=== PATIENT | female | born 1980 ===

== ENCOUNTER 2017-02-25 10:15 | Inpatient (IN) | payer MEDICARE, MEDICAID ==
[~2017-02-25] VITALS: Ht 171.4 cm; Wt 123.4 kg
[2017-02-25] MEDS: Hemorrhage Kit, Post Partum XX ONE ×2 (02:30→14:52)
[2017-02-25] MEDS: Misoprostol 25 mCg/0.25 Tablet VAGINAL SCH ×4 (05:30→20:30)
[2017-02-25] MEDS ORDERED: Carboprost 250 mCg/mL Inj IM PRN (14:10)
[2017-02-25] MEDS ORDERED: fentaNYL-PF 50 mCg/mL 2 mL Inj IVPUSH PRN (14:10)
[2017-02-25] MEDS ORDERED: Methylergonovine 0.2 mg/mL Inj IM PRN (14:10)
[2017-02-25] MEDS ORDERED: Oxytocin 10 Unit/mL Inj IM PRN (14:10)
[2017-02-25] MEDS ORDERED: Oxytocin 30 Units/500 mL LR 30 UNITS in IV Premix 1 EACH IV PRN (14:10)
[2017-02-25 15:03] LABS: Mean Corpuscular Hemoglobin 28.8 pg (27.0-35.0); Mean Corpuscular Volume 87.1 fL (81-100)
[2017-02-26] MEDS: Misoprostol 25 mCg/0.25 Tablet VAGINAL SCH ×8 (00:40→23:30)
[2017-02-26] MEDS ORDERED: Ondansetron 2 mg/mL 2 mL Inj ONE (00:51)
[2017-02-26 06:35] LABS: Mean Corpuscular Hemoglobin 29.3 pg (27.0-35.0); Mean Corpuscular Volume 87.1 fL (81-100)
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
[2017-02-26] MEDS: Ondansetron 2 mg/mL 2 mL Inj IVPUSH PRN ×3 (08:05→19:48)
[2017-02-26] MEDS: Sodium Chloride LOK Flush 10 mL Syringe IVFLUSH PRN ×2 (08:07→14:58)
[2017-02-26] MEDS: Lactated Ringer's 1,000 ML IV PRN ×2 (17:41→20:14)
[2017-02-27] MEDS: Ondansetron 2 mg/mL 2 mL Inj IVPUSH PRN ×3 (00:11→09:39)
[2017-02-27] MEDS: Lactated Ringer's 1,000 ML IV PRN (00:28)
[2017-02-27] MEDS: Misoprostol 25 mCg/0.25 Tablet VAGINAL SCH ×4 (02:30→11:30)
[2017-02-27 05:40] LABS: Mean Corpuscular Hemoglobin 28.8 pg (27.0-35.0); Mean Corpuscular Volume 86.8 fL (81-100); Platelet Count 191 bil/L (150-400)
[2017-02-27] MEDS ORDERED: MetoCLOpramide 5 mg/mL 2 mL Inj IVPUSH ONE (07:35)
[2017-02-27] MEDS: Lactated Ringer's 1,000 ML IV SCH ×2 (09:33→14:01)
[2017-02-27] MEDS ORDERED: MetoCLOpramide 5 mg/mL 2 mL Inj IVPUSH PRN (09:35)
[2017-02-27] MEDS ORDERED: Oxytocin 30 Units/500 mL LR 30 UNITS in IV Premix 1 EACH IV PRN ×2 (09:35→17:05)
[2017-02-27] MEDS ORDERED: fentaNYL 2 mCg/mL-Bupivicaine 0.125% 100 mL Premix EPIDURAL ONE (11:53)
[2017-02-27] MEDS ORDERED: Lactated Ringer's 500 ML IV ONE (12:38)
--- NOTE | 2017-02-27 12:38 | PCM.HPANE ---
Patient Data Date of Service: Feb 27, 2017 (Exam completed 11:00) Surgeon Admitting Provider:Allan Seals MD Attending Provider:Allan Seals MD Primary Care Physician:Allan Seals MD Other Provider:Amando Gtz Anesthesia Reason for Visit Nst For Gestational Diabetes NST FOR GESTATIONAL DIABETES Ht/WT & BMI Body Mass Index Allergies Coded Allergies: No Known Allergies (Unverified , 02/25/17) Diabetes History Hx Diabetes?: Yes Medications Hypertension Medication: Yes History History of ENT Problems?: No Cardiovascular History: Positive for:: Edema Hypertension Irregular Heartbeat Other History/Comments History of MVP and PVCs. Hx Neurologic Problems?: No Hx of GI Problems?: No Female Hx: Positive for:: Currently Smoking Status: Former Smoker Stop/Bang Treated for Sleep Apnea?: No Do You Have a CPAP Machine?: No P-Blood Pressure: treated: Yes B- Body Mass Index > 35 kg/m2: Yes A- Age over 50: No N- Neck Large Circumference: Yes G- Gender Male: No DEWAYNE Risk Assessment: High Risk, =/>3 Yes Risk Assessment Category Category 1A: Patient has history of documented sleep apnea, and HAS NOT received any narcotic, sedative or anesthesia administration during this stay. Category 1B: Patient has history of documented sleep apnea, and HAS received any narcotic , sedative or anesthesia administration during this stay Category 2: Patient has SUSPECTED Obstructive Sleep Apnea, and HAS received any narcotic , sedative or anesthesia administration during this stay. Category 3: Patient has SUSPECTED Obstructive Sleep Apnea and HAS NOT received narcotic, sedative or anesthesia administration during this stay. Category 4: Outpatient in Procedural Areas with known sleep apnea or who screen positive for High Risk via the STOP/BANG questionnaire. Exam Exam General Appearance: Alert, Oriented X3, Cooperative, No Acute Distress HEENT/AIRWAY: MP 3 Lungs: Clear to Auscultation, Normal Air Movement Heart: Exam Unremarkable, Regular Rate/Rhythm, No Murmurs/Rubs/Gallops Meds/Labs/Diagnostics Admission Meds Current Medications Labetalol HCl (Normodyne) 100 mg ONCE ONCE PO Last administered on 02/26/17t 16 :45; Start 02/26/17 at 16:45; Stop 02/26/17 at 16:46; Status DC Zolpidem Tartrate (Ambien) 5 mg ONCE ONCE PO Last administered on 02/27/17 01: 30; Start 02/27/17 at 01:00; Stop 02/27/17 at 01:01; Status DC Zolpidem Tartrate (Ambien) 10 mg ONCE ONCE PO Last administered on 02/27/17 01 :30; Start 02/27/17 at 01:30; Stop 02/27/17 at 01:31; Status DC Metoclopramide HCl (Reglan Inj) 10 mg PRN ONCE IVPUSH Last administered on 02/27 07:49; Start 02/27/17 at 07:35; Stop 02/27/17 at 07:36; Status DC Labs Test 02/25/17 14:30 02/26/17 05:00 02/26/17 05:40 02/27/17 05:30 Hemoglobin A1c 5.5% (4.8-5.6) Urine Random Creatinine 172mg/dL (16-392) Urine Random Total Protein 432mg/dL (0-15) Urine Protein/Creatinine Ratio 2.59 Hematology Comments White Blood Count 15.0th/mm3 (3.8-10.1) Red Blood Count 4.10mil/mm3 (3.90-5.20) Hemoglobin 11.8g/dL (12.0-15.6) Hematocrit 35.6% (35.0-46.0) Mean Corpuscular Volume 86.8fL (81-100) Mean Corpuscular Hemoglobin 28.8pg (27.0-35.0) Mean Corpuscular Hemoglobin Concent 33.1% (32.0-37.0) Red Cell Distribution Width 13.3% (12.3-15.4) Platelet Count 191bil/L (150-400) Blood Urea Nitrogen 14mg/dL (6-20) Creatinine 0.81mg/dL (0.57-1.00) Uric Acid 10.5mg/dL (2.6-7.2) Aspartate Amino Transf (AST/SGOT) 26U/L (0-50) Alanine Aminotransferase (ALT/SGPT) 16U/L (0-32) Test 02/27/17 05:40 Hold Urine Received (Received) Plan Impression Patient chart reviewed, patient interviewed and anesthestic plan with risks, benefits, and alternatives discussed, and informed consent obtained. ASA Physical Status: ASA2 Mod Systemic Disease Anesthetic Plan: Epidural Bene/Risks/Altern/Consents: Yes HP Complete Prior to Induction: Yes Ugo Beavers MD Feb 27, 2017 12:38
[2017-02-27] MEDS ORDERED: Atropine 1 mg/10 mL (Code) Syringe IVPUSH PRN (12:40)
[2017-02-27] MEDS ORDERED: fentaNYL 2 mCg/mL-Bupiv 0.125% 100 ML EPIDURAL SCH (12:40)
[2017-02-27] MEDS ORDERED: EPHEDrine Sulfate 50 mg/mL Inj IVPUSH PRN (12:40)
[2017-02-27] MEDS ORDERED: Ondansetron 2 mg/mL 2 mL Inj IVPUSH PRN (12:40)
[2017-02-27] MEDS ORDERED: Measles-Mumps-Rubella Vaccine 0.5 mL Inj SUBQ ONE (17:05)
[2017-02-27] MEDS ORDERED: Witch Hazel-Glycerin Pads TOPICAL PRN (17:05)
[2017-02-27] MEDS ORDERED: Oxytocin 10 Unit/mL Inj IM PRN (17:05)
[2017-02-27] MEDS ORDERED: TdaP Vaccine 0.5 mL Inj IM ONE (17:05)
[2017-02-27] MEDS ORDERED: Hemorrhage Kit, Post Partum XX ONE (17:05)
[2017-02-27] MEDS ORDERED: LANOlin HPA 7 Gm Ointment TOPICAL PRN (17:05)
[2017-02-27] MEDS ORDERED: Benzocaine (Dermoplast) 20% 60 Gm Spray TOPICAL PRN (17:05)
[2017-02-27] MEDS ORDERED: Influenza (Adult) Vaccine 0.5 mL Syringe IM ONE (17:05)
[2017-02-27] MEDS ORDERED: Carboprost 250 mCg/mL Inj IM PRN (17:05)
[2017-02-27] MEDS ORDERED: Methylergonovine 0.2 mg/mL Inj IM PRN (17:05)
[2017-02-27] MEDS ORDERED: HYDROcodone-APAP 5-325 mg Tablet PO PRN (17:05)
[2017-02-28 06:21] LABS: Mean Corpuscular Volume 87.5 fL (81-100)
[2017-02-28] MEDS: Lactated Ringer's 1,000 ML IV SCH ×3 (07:34→07:35)
[2017-02-28] MEDS: Misoprostol 25 mCg/0.25 Tablet VAGINAL SCH (07:34)
[2017-02-28] MEDS ORDERED: Measles-Mumps-Rubella Vaccine 0.5 mL Inj SUBQ ONE (08:30)
[2017-03-01] MEDS: Misoprostol 25 mCg/0.25 Tablet VAGINAL SCH ×6 (05:30→20:30)
--- NOTE | 2017-03-01 07:16 | PROG NOTE ---
[address] [address] PROGRESS NOTE PATIENT: RADHA FLETCHER : 1980 MR#: [id number] ADMIT: 02/25/2017 JOB ID: [id number] [facility] NOTE: DATE: 02/26/2017 SUBJECTIVE: The patient was admitted to [facility] on February 25, 2017 with severe preeclampsia on the basis of proteinuria and with associated significant blood pressure elevation at 36 weeks along in her first . Cytotec was provided February 25, 2017 and in to February 26, 2017, followed by Cervidil. Some cramping/mild contractions have occurred although no significant uterine activity. heart tracing has been okay and blood pressure has been elevated, more significantly at times, yet without need for routine antihypertensive medication. Single dose of oral labetalol was provided. Otherwise, heart tracing has been good, labs have been stable, and we had the opportunity to continue with cervical ripening/labor induction in the interest of delivery although without the need to proceed to section at this point. I have had a thorough discussion with the patient and in this regard. They realize that delivery is indicated to help in the preeclampsia process for maternal and consideration. However, they realize that progress is slow and to be expected to be slow. We have discussed the factors that we are observing including condition as well as maternal factors, (labs, blood pressure, urine output) to help guide our next step. We have also discussed magnesium sulfate therapy, potentially to use once labor becomes more active although not at this point in time. All questions have been answered. No guarantees stated or implied. PLAN: Continue cervical ripening/labor induction efforts.
[2017-03-01] MEDS: Sodium Chloride LOK Flush 10 mL Syringe IVFLUSH SCH ×2 (08:30→16:30)
[2017-03-01] MEDS: Lactated Ringer's 1,000 ML IV SCH ×4 (09:05→19:05)
--- NOTE | 2017-03-01 10:23 | PROG NOTE ---
[address] [address] PROGRESS NOTE PATIENT: RADHA FLETCHER : 1980 MR#: [id number] ADMIT: 02/25/2017 JOB ID: [id number] DATE: 02/28/2017 at 1700 hours. SUBJECTIVE: The patient is now on day number one following a vaginal delivery at 36+ weeks along in setting of severe preeclampsia with noted "significant" proteinuria and hypertension and some growth restriction plus gestational diabetes. Note that blood sugars have been fine and blood pressures have frequently been mildly elevated and occasionally higher, ultimately leading to labetalol administration 100 mg twice daily, for continued tracking. Magnesium sulfate therapy was not initiated. Urine output has been fine. There has been no reported headache, blurry vision, right upper quadrant or epigastric pain or reflex concerns of note. Platelet count has been acceptable. Baby has remained in the nursery and mom has been able to hold the baby which condition has been improving in the setting of prematurity. PLAN: 1. Continue care in the hospital. 2. Continue the track closely blood pressures and to continue labetalol 100 mg p.o. b.i.d. We will see if anything additional is needed over time. 3. Continue to track blood sugars on diabetic diet.
--- NOTE | 2017-03-01 10:23 | PROG NOTE ---
[address] [address] PROGRESS NOTE PATIENT: RADHA FLETCHER : 1980 MR#: [id number] ADMIT: 02/25/2017 JOB ID: [id number] DATE: at 1730 hour. SUBJECTIVE: The patient continued with cervical ripening overnight into February 27, 2017, in the setting of 36+ week with severe preeclampsia and also with known gestational diabetes. Note that her blood sugars have been fine. She has continued to have intermittent nausea and vomiting as she has had before labor induction and she had received intravenous Zofran and then intravenous Reglan as well. Urine output has been adequate although perhaps a little bit less on February 27, 2017. We have preferred to not fluid overload although with nausea and vomiting, she is likely somewhat dry and we have provided some intravenous fluids today. Blood pressure has been elevated at times, although with no consistent worrisome changes. heart tracing has been good. In the morning of February 27, 2017, cervix was noted early to be at 1.5 cm dilatation, and then later 2.5 to 3 cm dilatation and with greater than 50% effacement. Artificial rupture of membranes was accomplished and clear fluid recovered and intrauterine pressure catheter was placed as well scalp electrode in that heart tracing had been difficult to obtain throughout hospitalization due to morbid obesity. Uterine contraction pattern was then demonstrated to be somewhat safe although with some good contractions and intensity. Pitocin augmentation was initiated and uterine contractions became gradually closer. Cervix then more readily dilated and she reached complete cervical dilatation. Note from the nursing staff reported heart rate deceleration including variables and late decelerations at times, although with reportedly consistent good variability and appropriate heart rate response to scalp stimulation. The active phase of labor was rather rapid. Magnesium sulfate therapy was not initiated in light of the rather rapid active phase of labor, as blood pressures were remaining generally acceptable with the benefit of epidural as well, and with the preeclampsia and central nervous system appearing to remain relatively stable overall. There was no reported headache or blurry vision, or reflex changes, etc. Once completely dilated, patient was encouraged to push and I came to the hospital. However, on second push while I was on the phone and went into the hospital, patient actually delivered explosively. I came into the room and a small baby (less than 5 pounds, suspect some growth restriction related to preeclampsia that probably was present for some time) was noted, and baby was pink and with good tone but was receiving some oxygen and positive pressure ventilation as support to bring oxygen levels up. The safety analyst also arrived and increased the oxygen delivery and oxygen levels promptly went up and baby continued to show reasonable tone, color and response. Note that cord blood was obtained for routine studies and placenta with membranes then ultimately were expelled, intact. Placenta was sent to pathology due 36 week delivery with preeclampsia and gestational diabetes. Note also the SGA/IUGR is suspect related to more ongoing preeclampsia for some time, although not manifesting clinically until significantly later. Betadine solution was used to cleanse the vulvovaginal region and there were noted several lacerations, including left lateral sulcus/vaginal laceration, midline second degree perineal laceration and periurethral lacerations. These were all repaired in typical fashion with chromic suture with running stitches, additional deep stitch layer in the perineal region and without any obvious hematoma formation anywhere, with hemostasis noted to be complete. Bleeding was minimal. Instrument, needle and sponge counts were all found to be correct. It certainly is anticipated that mother and baby will do well. Baby is early and also with known gestational diabetes that could delay lung maturity, although on the other hand with SGA/IUGR probably from preeclampsia that had been present for a time, that could potentially improve readiness for delivery. Laundrette Owner will be closely following baby who will spend some time in the nursery. From a maternal standpoint, we will continue to track urine output which should further improve, although responding some to extra fluid, and we will also follow blood pressure and administer medication if needed. We can tolerate some mild blood pressure elevations, although we would like to avoid blood pressure extremes. We did not feel that it was mandatory to implement magnesium sulfate therapy, and have not also, as urine output was starting to diminish on the day of delivery, but we will implement this or antihypertensive medications if needed. We will also continue to track any other clinical signs and symptoms of preeclampsia and lab work, blood sugars, etc. We will continue on diabetic diet. [facility]
[2017-03-01] MEDS ORDERED: buPROPion SR 150 mg ER12 Tablet PO ONE (19:00)
[2017-03-02] MEDS: Sodium Chloride LOK Flush 10 mL Syringe IVFLUSH SCH (00:30)
[2017-03-02] MEDS: Lactated Ringer's 1,000 ML IV SCH (09:19)
[2017-03-02] MEDS ORDERED: Sodium Biphos-Phos 133 mL Enema RECTAL ONE (12:45)
--- NOTE | 2017-03-02 15:58 | PCM.CHPMED ---
Subjective Date of Service: Mar 02, 2017 Primary Physician: Admitting Physician: Allan Seals MD Primary Care Physician: Allan Seals MD Attending Physician: Allan Seals MD [facility] Allergies: Coded Allergies: No Known Allergies (Unverified , 02/25/17) Social History Smoking Status: Former Smoker Exam Lab and Diagnostics Result Diagram: 02/28/17 0555 02/27/17 0530 Emilia Sal DO Mar 02, 2017 15:58
[2017-03-02] MEDS ORDERED: NIFEdipine 30 mg ER24 Tablet PO SCH (16:00)
--- NOTE | 2017-03-02 16:16 | PCM.CHPMED ---
Subjective Date of Service: Mar 02, 2017 Provider requesting consult: Allan Seals MD Primary Physician: Admitting Physician: Allan Seals MD Primary Care Physician: Allan Seals MD Attending Physician: Allan Seals MD Chief Complaint: Chief Complaint: Uncontrolled hypertension History of Present Illness: The patient is a 37-year-old, AB3, status post induced vaginal delivery at 36 weeks gestational age. as complicated by gestational diabetes requiring diet changes and glyburide, 2.5 mg daily before bedtime and progressive preeclampsia manifesting as hypertension and proteinuria. She had a vaginal delivery on 02/27/2017 delivered a viable 5 pound infant. Patient has a history of morbid obesity, hypothyroidism,gout, celiac disease, mitral valve prolapse. Patient's hypertension has been treated with labetalol, 100 mg by mouth twice a day, which has been later changed to 200 mg twice a day. However, blood pressure remained to be consistently elevated ranging between 165/98 and 176/100. Her labs were significant for proteinuria +4 and uric acid of 9.7, otherwise, platelets, liver enzymes and creatinine were normal. Today is day 3. Patient states she feels tired and constipated but otherwise well. She denies headache, vision changes, chest pain, heart palpitations, nausea, vomiting, abdominal pain. She is ambulating independently. She is voiding without difficulties. She is passing flatus. She has light lochia.She denies depression. Review of Systems: A comprehensive review of system has been conducted with the patient and is negative except what has been mentioned in the History of present Illness. PMH Allergies: Coded Allergies: No Known Allergies (Unverified , 02/25/17) Social History Smoking Status: Former Smoker Exam Vital Signs Blood pressure: right upper extremity 214/215, left lower extremity 216/211, right lower extremity 181/116, pulse low 60's, otherwise stable. General: Alert, Oriented X3, Cooperative, No Acute Distress Head: Normal Eyes: PERRLA, EOMI, Scleral Anicteric Mouth: Mucous Membr Moist/[place] Neck: Supple Chest & Lungs: Clear to auscultation & percussion Cardiovascular: Exam Unremarkable, Regular Rate/Rhythm Pulses: Dorsalis Pedis Abdomen: Non-tender, Non-distended, Normoactive bowel tones Musculoskeletal: Unremarkable Extremities: No cyanosis/clubbing/edma bilat Neurological: Grossly Neurologically Intact Lab and Diagnostics Result Diagram: 02/28/17 0555 02/27/17 0530 Assessment & Plan Assessment Brooklynn Anderson is a 37-year-old, AB3, status post induced vaginal delivery at 36 weeks gestational age with persistent hypertension. Hospital day 3. 1. Persistent hypertension, present on admission. Active -Goal of systolic blood pressure less than 140 mmHg and diastolic blood pressure less than 90 mmHg at time of discharge, per consensus guidelines -Start nifedipine, 30 mg ER by mouth daily -Continue labetalol, but decrease to 100 mg by mouth twice a day -Hydralazine, 10 mg intravenously as needed if systolic blood pressure above 180 -CBC and CMP stat -Continue to closely monitor 2. Constipation, present on admission. Active -Add miralax, 17mg powder, by mouth daily to patient's bowel regime -Encourage hydration with clear liquids and physical activity 3. Depression, present on admission. Stable -Continue sertaline, 50 mg by mouth daily Disposition: Home, pending clinical course. Blood pressure goal 140-150/90 for 24 hours prior to discharge. Pain Evaluation: Adequate Pain Control GI Prophylaxis: H2 harris VTE Prophylaxis: SCDs Resuscitation Status: CPR: Attempt Resuscitation . Problems: Pain Evaluation: Adequate Pain Control Attending Statement The patient was seen and examined together with Dr. Sal on 03/02/2017 and I agree with the history, exam and plan as outlined in the note above. . Emilia Sal DO Mar 02, 2017 16:16 Brent Valles MD Mar 02, 2017 18:50
[2017-03-02] MEDS ORDERED: hydrALAZINE 20 mg/mL Inj IV PRN (16:30)
[2017-03-02 16:48] LABS: Mean Corpuscular Hemoglobin 29.5 pg (27.0-35.0); Mean Corpuscular Volume 88.3 fL (81-100)
[2017-03-02] MEDS: Polyethylene Glycol (PEG) 17 Gm Powder PO PRN (20:46)
--- NOTE | 2017-03-03 07:39 | PCM.PNMED ---
Subjective Date of Service Mar 03, 2017 Subjective Brooklynn Clement is a pleasant 37-year-old day 4 lady with recent history of severe preeclampsia that resulted in delivery at 36 weeks. The Hospitalist Service was consulted for assistance with persistent hypertension. Patient was found resting comfortably in bed with her significant other at bedside. She denied any headache, lightheadedness, dizziness, sore throat, cough, chest pain, shortness of breath, nausea, vomiting, abdominal pain. She noted no ill effects from the addition of nifedipine yesterday afternoon at 1600. Additionally, patient had no further ill effects from use of labetalol, once the dose was reduced from 200 mg twice daily to 100 mg twice daily. No Nursing report of any adverse events overnight. . Exam Vital Signs Vital signs were reviewed in [facility]. . Exam General: No acute distress, well-developed, well-nourished, appropriately interactive, morbidly obese by BMI alone HEENT: Normocephalic, atraumatic. External ears without defect. Neck: Supple with full range of motion. No jugular venous distension. Cardiovascular: Regular rate and rhythm with no murmurs, rubs, or gallops appreciated Pulmonary: Clear to auscultation bilaterally with no crackles, wheezes, or rhonchi. Normal respiratory effort with no use of accessory muscles. Abdomen: Bowel tones present. Soft, nontender, nondistended. No hepatosplenomegaly or masses appreciated. Extremities: No edema Skin: Normal temperature, turgor, and texture; no rash appreciated. Neurological: Cranial nerves grossly intact. Normal muscle strength, tone, and bulk. No known gait impairment. Psychiatric: Normal mood and affect. Alert and oriented to person, place, and time. . Lab and Diagnostics Result Diagram: 03/02/17 1635 03/02/17 1635 Assessment & Plan Brooklynn Anderson is a 37 year-old, AB3, status post induced vaginal delivery at 36 weeks gestational age with persistent hypertension. Hospital day 4. 1. Persistent hypertension. Improving. -Goal of systolic blood pressure less than 140 mmHg and diastolic blood pressure less than 90 mmHg at time of discharge, per consensus guidelines -Continue labetalol, 100 mg by mouth, twice daily -Increased nifedipine from 30 mg to 60 mg by mouth, daily -Hydralazine, 10 mg intravenously as needed if systolic blood pressure above 180 ; not used overnight -Patient has a history of gout and is currently hyperuricemic; thiazide diuretics should be used cautiously, if at all, if ongoing antihypertensive control is needed in the future -Continue to closely monitor 2. Constipation, present on admission. Active. -Patient had 1 small bowel movement yesterday evening -Continue Miralax, 17mg powder by mouth, daily -Encourage hydration with clear liquids and physical activity 3. Depression, present on admission. Stable. -Continue sertaline, 50 mg by mouth daily 4. Metabolic syndrome, present on admission. Active. -Patient reported successfully employing a ketogenic diet to facilitate 60 pounds weight loss prior to -Patient plans on returning to previous diet to lose weight -Patient was advised to follow with a primary care physician prior to reinitiation of diet in order to monitor blood pressure closely (I recommended Dr. Silviano Villatoro at [facility], who is very familiar with low carbohydrate dietary interventions) Disposition: Home, pending clinical course. Blood pressure goal 140-150/90 for 24 hours prior to discharge. Thank you for allowing the Hospitalist Service to participate in this case with this most interesting patient. We will sign off now, but are available as needed. . Pain Evaluation: Adequate Pain Control GI Prophylaxis: H2 harris Resuscitation Status: CPR: Attempt Resuscitation Brent Valles MD Mar 03, 2017 07:39
[2017-03-03] MEDS: NIFEdipine 30 mg ER24 Tablet PO SCH (09:46)
[2017-03-03] MEDS: Polyethylene Glycol (PEG) 17 Gm Powder PO PRN (14:46)
--- NOTE | 2017-03-03 16:51 | PROG NOTE ---
[address] [address] PROGRESS NOTE PATIENT: RADHA FLETCHER : 1980 MR#: [id number] ADMIT: 02/25/2017 JOB ID: [id number] DATE: 03/03/2017 [facility] NOTE: The patient underwent vaginal delivery after two-day labor induction at 36+ weeks of gestation in the setting of severe preeclampsia on the basis of significant hypertension plus proteinuria. Patient also had gestational diabetes, managed with diet plus glyburide. During the timeframe, patient has improved in all ways. She is voiding, ambulating, has reasonable bleeding, has reasonable pain management with ibuprofen only. She is breast feeding, handling baby well. Has had no leg pain or shortness of breath, etc. Main issue has been that of hypertension that has been significant following delivery, both labile as well as elevated. She was initially started on labetalol and ultimately internal medicine hospitalist was invited in for consultation and management and labetalol was continued at reduced dose and nifedipine extended release product added in. The patient is now using labetalol 100 mg p.o. b.i.d. and nifedipine extend release product has been increased to 60 mg daily. Patient had significant blood pressure elevations during the day yesterday, then coming down with nifedipine for example to 134-156 over 84-88, and now with further nifedipine ER dose increase per hospitalist. Anticipate that patient will do well on this combination of medication at these doses and will probably be able to be discharged to home on March 04, 2017. Internal medicine hospitalist and I agree, however, that we would like to see stable blood pressures over the next 24 hours or so, from March 03, 2017, in to March 04, 2017, prior to official discharge due to prior elevations and lability. Note that although ALT is at 48 (up from 40) with normal 32, and AST is 59, up from 50, these are considered only very mild elevations and not felt to be specifically related to preeclampsia as other lab parameters have not shown any worrisome findings or trends. IMPRESSION: 1. by four days, doing okay. 2. Persistent hypertension, improving, now on dual medications, i.e. nifedipine ER plus labetalol, with prior notation of severe preeclampsia leading to delivery at 36+ weeks of gestation. 3. Prior gestational diabetes, managed with diet plus glyburide, now only on diet and with normal sugars during the timeframe. 4. Morbid obesity. 5. Hypothyroidism, using replacement therapy. 6. Hyperuricemia, note past gout and allopurinol use. 7. Anxiety and depression history, now using Zoloft initiated a couple days ago. 8. Very mild elevation of liver enzymes. Do not suspect any concerning condition. 9. Constipation, improved with ongoing Colace and MiraLAX use now. Status post Dulcolax pill, dulcolax suppository, and Fleet enema. 10. Nursing mother. 11. , condition improving, perhaps soon to leave the nursery out to patient's room. 12. Reported marijuana use for nausea management, admitted to nurse during this hospitalization. 13. See record and current hospital records for additional diagnoses and information. PLANS: Continue postoperative/ management. Will continue to track blood pressures, likely sufficiently stable for patient discharge tomorrow. Anticipating that the baby will be brought out soon to patient's room. Will also check preeclampsia lab work and liver enzymes tomorrow morning, will continue MiraLAX, will continue to track sugars and diabetic diet, will continue sertraline recently initiated, and so forth.
[2017-03-03] MEDS ORDERED: Sodium Chloride NAS 45 mL Spray NASAL PRN (20:20)
[2017-03-04 06:03] LABS: Mean Corpuscular Hemoglobin 29.4 pg (27.0-35.0)
[2017-03-04] MEDS: NIFEdipine 30 mg ER24 Tablet PO SCH (07:27)
--- NOTE | 2017-03-04 08:11 | PROG NOTE ---
[address] [address] PROGRESS NOTE PATIENT: RADHA FLETCHER : 1980 MR#: [id number] ADMIT: 02/25/2017 JOB ID: [id number] [facility] NOTE: DATE: 03/01/2017 TIME: 1800 hours This patient underwent vaginal delivery after lengthy induction at 36+ weeks along in her , complicated by severe preeclampsia manifested as hypertension and proteinuria, also with gestational diabetes, controlled with diet plus glyburide. On the 2nd day, the patient has continued to ambulate well, has voided, her pain has been manageable with ibuprofen, she has not had calf pain, or shortness of breath. The patient has continued to have some blood pressure elevation, mildly elevated frequently in the 130s-150s/80s primarily, although occasionally was systolic in the upper 150s and diastolics in the 95-100+ range. Significant lability has been noted since admission even during the induction process as well as after delivery, suspect related to the preeclampsia condition. I have started her on labetalol 100 mg p.o. b.i.d. and then this evening, on March 01, 2017, to increase to 200 mg p.o. b.i.d. in the interest of trying to reduce the peak systolic and diastolic level. Overall, she has appeared stable from a and from preeclamptic and gestational diabetic side of things, but would like to see less labile blood pressures before discharge to home. The patient is concerned that she will be depressed and she also continues to carry a lot of anxiety. She believes her blood pressure goes up at times when she is anxious. She has used clonazepam in the past and also Wellbutrin. I have discussed with the pediatric hospitalist and do feel better about sertraline as an agent to potentially help depression and anxiety and prevent depression as opposed to Wellbutrin or clonazepam, and sertraline 50 mg p.o. q.h.s. will be initiated this evening. The patient has been quite concerned regarding no bowel movement yet. She would like something for this and I will give her dulcolax tablet to take at bedtime, anticipating a bowel movement in the morning. If this did not occur, we will provide dulcolax suppository or even Fleet enema to follow if needed. PLAN: 1. Continue to closely follow blood pressures, to increase labetalol to 200 mg p.o. b.i.d., and to elicit the help of safety specialist on March 02, 2017, in fact blood pressure issues as far as lability continue to be notable. I have not suspected progressive preeclampsia at this point in time. 2. Continue to track blood sugars while staying on diabetic diet, no glyburide . 3. Continued to support interaction with baby in the nursery. 4. Continue ibuprofen for pain management. 5. Initiate Zoloft 50 mg p.o. q.h.s. to try to help with mood stabilization as there is concern regarding depression as well as ongoing anxiety. I have encouraged her this week, immediately once at home, to check in with Dr. Js Dexter her family physician at [facility] in [place], in regard to anxiety and depression management, consideration of counseling, etc. 6. Dulcolax pills given tonight, to ramp up efforts at assisting with bowel movement as per her request on March 02, 2017, if needed. To continue with Colace. FOUZIA
--- NOTE | 2017-03-04 08:11 | PROG NOTE ---
[address] [address] PROGRESS NOTE PATIENT: RADHA FLETCHER : 1980 MR#: [id number] ADMIT: 02/25/2017 JOB ID: [id number] [facility] NOTE: DATE: 03/02/2017 TIME: 1800 hours. This patient now on day #3, following vaginal delivery at 36+ weeks along in setting of severe preeclampsia (hypertension and proteinuria) and with gestational diabetes (controlled with diet plus evening glyburide). During the timeframe, on the 3rd day, the patient in general is doing much better, ambulating, voiding, eating, handling baby, and with manageable pain. She was able to have a couple of bowel movements following dulcolax suppository and then Fleet's enema, and she has felt better. MiraLAX will be initiated this evening. Colace has also been given. Patient's main issue has been that of hypertension, overnight running 148/78, then 176/94, then 132/61, then 184/94, then 145/90, then 164/98. Significant lability has thus still been noted with diastolics approaching 100 at times and systolics occasionally in the 170s or 180s. This is in spite of having bumped up the dose of labetalol to 200 mg p.o. b.i.d. Note that the patient has been voiding okay, she has not complained of worrisome headache or blurry vision or right upper quadrant or epigastric pain, and preeclampsia labs have been rechecked and have not shown worrisome changes (ALT and AST are borderline elevated, doubt significance, creatinine and platelet count are okay. Urine protein dip is pending). I asked Internal Medicine hospitalist to consult on the patient and assume her blood pressure management in that it has been difficult to control and not improving with increasing beta-harris use. With heart rate in the 60s, I cannot go up further comfortably on the beta harris, and perhaps add a second agent is needed such as a calcium channel harris or other medication. I will leave this management up to case specialist and in the meantime follow along watching for any unusual progressive signs of preeclampsia, although I have not suspected this at this point, although blood pressures have remained labile and elevated. Note that blood sugars have been okay, ranging between fasting of 74 and 83, and 1 hour post prandials ranging between 84 and 123. IMPRESSION: 1. by three days, doing well in general. 2. Persistent hypertension today in spite of increasing beta-harris therapy, now with Internal Medicine hospitalist managing hypertension. 3. Will follow up urine protein dip this evening. 4. Continuing on diabetic diet and tracking fasting and 1 hour postprandial sugars, no glyburide. 5. Continuing Zoloft 50 mg p.o. q.h.s. as initiated last evening, hopefully to help with anxiety and to help prevent significant depression. 6. Contained to support the patient with baby in the nursery, pumping. 7. Track urine output. 8. To initiate MiraLAX tonight for ongoing use.
--- NOTE | 2017-03-04 12:03 | NUR ---
Social Work Note - Family Assessment 03/04/17 11:25 MOB Brooklynn Anderson Baby: Horacio Anderson Reason for Social Work Referral: Anxiety Current Living Situation: Living in [place] with her . 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 This is their first child. Substance Use: MOB admits to THC during to cope with stress - FOB also smokes marijuana. Mental Health: MOB admits to Anxiety - was on Wellbutrin prior to - [employer]ARD[employer] OPERATOR is starting her on Zoloft. No counseling - [employer] provided support, education on Post Depression, provided educational materials and outpt crisis line if needed. Source of Income: Working at [employer]. DV - Denies Supports: . Pt is interested in WIC - [employer] provided handouts for community resources as well as WIC in the area. Plan: Baby will D/C home with parents and community follow up - No other needs identified. ALBERTO Rosario
--- NOTE | 2017-03-04 13:55 | PATH ---
SURGICAL PATHOLOGY Attending Physician:Allan Seals M.D CASE STATUS: Signed Out PATIENT NAME: RADHA FLETCHER PID: [id number] : 1980 DATE COLLECTED:02/27/2017 00:00 SPECIMEN: Placenta CLINICAL HISTORY: 36 WEEKS DELIVERY, SEVERE PREECLAMPSIA, GESTATIONAL DIABETES 1). PLACENTA FINAL DIAGNOSIS: Placenta with Umbilical Cord and Membranes: 1. Placenta: 364 grams, which is approximately the 35th percentile for a 36-week gestation. Multiple small infarcts involving less than 5% of the placental disc. Negative for significant inflammation. 2. Umbilical cord: 18.4 cm in length with attachment 3.3 cm from the placental edge. Three normal blood vessels. Negative for significant inflammation. 3. membranes: Ruptured 5.8 cm from the free placental edge. Negative for significant inflammation. ICD10 O43.813 GROSS DESCRIPTION: The specimen is received in formalin, labeled with the patient's name and consists of an intact placenta and includes placental disc (364 g, 19.2 x 14.3 x 3.0 cm), umbilical cord (length-18.4 cm, diameter-0.8 x 0.7 cm) and membranes. The membranes are ruptured 5.8 cm from the free edge of the placenta and are translucent. The umbilical cord is attached 3.3 cm from the edge of the placenta and contains 3 vessels. The surface is bosselated and shiny with dilated firm vessels. No evidence of meconium is identified. The maternal surface is dark maroon with normal cotyledon formation. The placental disc is spongy and contains multiple yellow-orange solid rubbery fibrous nodules (0.3 x 0.3 x 0.2 cm-1.5 x 1.2 x 0.6 cm) involving approximately 5% or less of the placenta. Section code: (A) edge of placenta with membranes; (B) umbilical cord; (C-E) placenta, 3 full thickness sections. 02/28/17 ICD-9 CODES: CPT CODES: 1: 79860 Electronically Signed Out Nino Estevez MD [facility] Pathology [facility] [address], [place] [address] Technical component performed at [facility], [address], [place], [address]
[2017-03-04] MEDS: Polyethylene Glycol (PEG) 17 Gm Powder PO PRN (18:25)
--- NOTE | 2017-03-04 19:16 | PCM.DIOB ---
Obstetrical Disch Instruction Dates of Hospitalization Date of Hospital Admission Feb 25, 2017 at 13:59 Providers Admitting Physician: Allan Seals MD Primary Care Physician: Allan Seals MD Attending Physician: Allan Seals MD Discharge Diagnosis Problems: (1) Status: Acute ICD Code: Z33.1 (2) Preeclampsia Status: Acute ICD Code: O14.90 (3) Gestational diabetes mellitus (GDM), delivered Status: Acute ICD Code: O24.429 Diet Discharge Diet: Diabetic ([id number] ADA Diet (Use the diet that was utilized during late .)) Activity Discharge Activity-General: Pelvic Rest for 6 weeks Dressing and Incisional Care Hygiene: May shower, Perineal care, Sitz bath, Dermoplast spray, Witch Carie pads, Ice Follow Up Plan Follow-up appointment: Weeks (Call [facility] Nurse in 1 Week with Several Blood Pressure Checks. Follow up 6 weeks for Appointment at [facility].) Call your provider for: Fever or Chills, Shortness of breath, Heavy vaginal bleeding, Red painful breasts Allan Seals MD Mar 04, 2017 19:16
[2017-03-04] MEDS ORDERED: POLY17PO6 PO (19:26)
[2017-03-04] MEDS ORDERED: SERT50TA9 PO (19:26)
[2017-03-04] MEDS ORDERED: IBUP-1827 PO (19:26)
[2017-03-04] MEDS ORDERED: LABE100T4 PO (19:26)
[2017-03-04] MEDS ORDERED: NIFE30TA92 PO (19:26)
--- NOTE | 2017-03-04 21:18 | PCM.PNMED ---
Subjective Date of Service Mar 04, 2017 Subjective patient 1 record of high BP this am,160/100,she has 3 BP reading with SBP in 120 's after that.asymptomatic Exam Vital Signs BP 126/70 Exam General: No acute distress, well-developed, well-nourished, appropriately interactive, morbidly obese by BMI alone HEENT: Normocephalic, atraumatic. External ears without defect. Neck: Supple with full range of motion. No jugular venous distension. Cardiovascular: Regular rate and rhythm with no murmurs, rubs, or gallops appreciated Pulmonary: Clear to auscultation bilaterally with no crackles, wheezes, or rhonchi. Normal respiratory effort with no use of accessory muscles. Abdomen: Bowel tones present. Soft, nontender, nondistended. No hepatosplenomegaly or masses appreciated. Extremities: No edema Skin: Normal temperature, turgor, and texture; no rash appreciated. Neurological: Cranial nerves grossly intact. Normal muscle strength, tone, and bulk. No known gait impairment. Psychiatric: Normal mood and affect. Alert and oriented to person, place, and time. IVs and Medications Medications Reviewed: Medications were reviewed in detail Lab and Diagnostics Result Diagram: 03/04/1745 03/04/1745 Assessment & Plan Brooklynn Anderson is a 37 year-old, AB3, status post induced vaginal delivery at 36 weeks gestational age with persistent hypertension. Hospital day 4. 1. Persistent hypertension. Improving. -Goal of systolic blood pressure less than 140 mmHg and diastolic blood pressure less than 90 mmHg at time of discharge, per consensus guidelines -Continue labetalol, 100 mg by mouth, twice daily -Increased nifedipine from 30 mg to 60 mg by mouth, daily on 03/03 -Hydralazine, 10 mg intravenously as needed if systolic blood pressure above 180 ; not used overnight -Patient has a history of gout and is currently hyperuricemic; thiazide diuretics should be used cautiously, if at all, if ongoing antihypertensive control is needed in the future -patient 1 record of high BP this am,160/100,she has 3 BP reading with SBP in 120's after that.asymptomatic.patient can be discharged on current regimen and recommend follow up with PCP in 1 week 2. Constipation, present on admission. Active. -Patient had 1 small bowel movement yesterday evening -Continue Miralax, 17mg powder by mouth, daily -Encourage hydration with clear liquids and physical activity 3. Depression, present on admission. Stable. -Continue sertaline, 50 mg by mouth daily 4. Metabolic syndrome, present on admission. Active. -Patient reported successfully employing a ketogenic diet to facilitate 60 pounds weight loss prior to -Patient plans on returning to previous diet to lose weight -Patient was advised to follow with a primary care physician prior to reinitiation of diet in order to monitor blood pressure closely (I recommended Dr. Silviano Villatoro at [facility], who is very familiar with low carbohydrate dietary interventions) Disposition: Home, pending clinical course. Blood pressure goal 140-150/90 for 24 hours prior to discharge. Thank you for allowing the Hospitalist Service to participate in this case with this most interesting patient. We will sign off now, but are available as needed.patient can be discharged on current regimen . GI Prophylaxis: H2 harris Resuscitation Status: CPR: Attempt Resuscitation Ric Herrera MD Mar 04, 2017 21:18
[2017-03-04 21:43] VITALS: BP 142/90; PULSE 87; RESP 16
--- NOTE | 2017-03-06 07:49 | DIS ---
[address] [address] DISCHARGE SUMMARY PATIENT: RADHA FLETCHER : 1980 MR#: [id number] ADMIT: 02/25/2017 JOB ID: [id number] DIS: 03/04/2017 DISCHARGE DIAGNOSES: 1. A 36 plus week , delivered. 2. Severe preeclampsia manifested particularly as hypertension, proteinuria and small for gestational age/intrauterine growth restriction. 3. Persistent hypertension requiring antihypertensive medications. 4. Gestational diabetes managed with diet and glyburide in , and with diet alone . 5. Morbid obesity. 6. Anxiety, also depression risk, with sertraline initiation during hospitalization. 7. Hyperuricemia, with past allopurinol use in setting of apparent gout. 8. Hypothyroidism, with chronic replacement therapy. 9. Constipation , ultimately having bowel movements during the timeframe, to be maintained on MiraLAX for a time. 10. Nursing mother. PROCEDURES PERFORMED DURING HOSPITALIZATION: 1. Labor induction. 2. Epidural anesthesia. 3. Vaginal delivery. 4. Vulvovaginal laceration repair. HOSPITAL COURSE: The patient was admitted to [facility] at 36 plus weeks of gestation with severe preeclampsia manifested primarily as hypertension and proteinuria. Patient also was noted to have baby with SGA/IUGR, consistent with preeclampsia process which was probably ongoing for some time before other clinical manifestations presented that ultimately resulted in current management. Labor induction took some time and ultimately after a couple of days was successful, leading to vaginal . During the timeframe, the patient had some significant hypertension and blood pressure lability, and labetalol and then nifedipine ER were provided with improvement in overall blood pressure readings. There was still occasional lability, although improved as well, and internal medicine hospitalist who helped orchestrate the hypertension management, felt that no additional antihypertensive medication changes were appropriate. Thus, they signed off the case and ultimately patient was discharged on antihypertensive medication. Otherwise, patient had appropriate blood sugars while continuing on diabetic diet, with glyburide discontinued. She was anxious and worried about depression and sertraline was initiated. She admitted to marijuana use, as did her , but denied other substances. She handled her baby well. The patient and I have negotiated her release from the hospital on March 04, 2017, once blood pressure ultimately became better controlled. She has promised to follow up, she will continue to use blood pressure medication and diabetic diet, she will track blood sugars, and I have encouraged her to see Dr. Js Dexter, her family physician in [place] regarding hypertension management over time, to facilitate diabetes management if they find this when not after about six weeks with diabetes status, to assist her with weight loss, and to also track for anxiety and potential depression risk, and to encourage her to follow up with mental health counseling/therapy as needed. He will also manage hypothyroidism, hyperuricemia, etc. He will also follow up the minor rash that developed on her hands toward the end of hospitalization, suspect irritation from allergy or perhaps from such frequent handwashing while going to the nursery, although also she has had tape on her hands from venipuncture, etc. No major worries. Patient will observe pelvic rest for six weeks. She will report blood pressures into my office in a week, as well as check in with Dr. Dexter as described, and ultimately will return for final checkup at six weeks . DISCHARGE MEDICATIONS: Include: 1. Labetalol 100 mg p.o. b.i.d. 2. Nifedipine ER 60 mg p.o. daily. 3. Sertraline 50 mg p.o. daily. 4. Ibuprofen 600 mg p.o. q.6 h. p.r.n. pain. 5. MiraLAX 17 g daily. Prescriptions written. She will also use vitamin daily, which she has at home and thyroid replacement therapy. Patient has been encouraged not to use marijuana. MTDD
== END 2017-03-04 22:10 | disposition home or self-care (01) | DRG 775 ==
LOC: FBCO 10:15 → UNDOADMIN 13:59 → FBC 13:59
PROVIDERS: ADMIT Obstetrics & Gynecology; ATTEND Obstetrics & Gynecology
PROC: 10H07YZ Insertion of Other Device into Products of Conception, Via Natural or Artificial Opening (ICD-10-PCS; 2017-02-25)
PROC: 10E0XZZ Delivery of Products of Conception, External Approach (ICD-10-PCS; principal; 2017-02-27)
PROC: 10907ZC Drainage of Amniotic Fluid, Therapeutic from Products of Conception, Via Natural or Artificial Opening (ICD-10-PCS; 2017-02-27)
PROC: 0KQM0ZZ Repair Perineum Muscle, Open Approach (ICD-10-PCS; 2017-02-27)
PROC: 0UQMXZZ Repair Vulva, External Approach (ICD-10-PCS; 2017-02-27)
PROC: 3E033VJ Introduction of Other Hormone into Peripheral Vein, Percutaneous Approach (ICD-10-PCS; 2017-02-27)
DX: O14.14 Severe pre-eclampsia complicating childbirth (principal); Z68.41 Body mass index [BMI] 40.0-44.9, adult; O24.425 Gestational diabetes mellitus in childbirth, controlled by oral hypoglycemic drugs; O99.214 Obesity complicating childbirth; E66.01 Morbid (severe) obesity due to excess calories; O99.284 Endocrine, nutritional and metabolic diseases complicating childbirth; E03.9 Hypothyroidism, unspecified; O71.82 Other specified trauma to perineum and vulva; O70.1 Second degree perineal laceration during delivery; O36.5930 Maternal care for other known or suspected poor fetal growth, third trimester, not applicable or unspecified; O75.89 Other specified complications of labor and delivery; K59.00 Constipation, unspecified; O76 Abnormality in fetal heart rate and rhythm complicating labor and delivery; E88.81 Metabolic syndrome and other insulin resistance; O99.344 Other mental disorders complicating childbirth; M10.9 Gout, unspecified; O09.513 Supervision of elderly primigravida, third trimester; F41.8 Other specified anxiety disorders; Z3A.36 36 weeks gestation of pregnancy; Z87.891 Personal history of nicotine dependence; Z37.0 Single live birth